=== PATIENT | male | born 1955 | race Caucasian/White ===

== ENCOUNTER → 2016-09-14 | Outpatient (CLI) | payer OTHER ==
[~2016-09-14] MED LIST: CEFD300C PO; CLIN1CAP6 PO; COUM5TAB PO; HYDR-3516 PO; ZITH250T PO
[2016-09-14 14:16] LABS: APTT (PATIENT) 32.1 SEC (24.3-30.1); INTERNATIONAL NORMALIZED RATIO 1.6 RATIO; PROTHROMBIN TIME - PATIENT 17.5 SEC (9.8-11.6)
== END ==
LOC: CLAB 13:45
PROVIDERS: ATTEND Physician Assistant Medical
DX: I82.401 Acute embolism and thrombosis of unspecified deep veins of right lower extremity (principal)
CPT/HCPCS: 36415; 85610; 85730

== ENCOUNTER → 2016-09-22 | Outpatient (CLI) | payer OTHER ==
[~2016-09-22] MED LIST changes: -CLIN1CAP6 PO; -HYDR-3516 PO
[2016-09-22 13:38] LABS: APTT (PATIENT) 38.3 SEC (24.3-30.1); INTERNATIONAL NORMALIZED RATIO 2.1 RATIO; PROTHROMBIN TIME - PATIENT 24.1 SEC (9.8-11.6)
== END ==
LOC: CLAB 12:53
PROVIDERS: ATTEND Physician Assistant Medical
DX: I82.401 Acute embolism and thrombosis of unspecified deep veins of right lower extremity (principal)
CPT/HCPCS: 36415; 85610; 85730

== ENCOUNTER 2016-09-27 20:34 | Emergency (ER) | payer OTHER ==
[~2016-09-27] VITALS: Ht 177.8 cm; Wt 68.0 kg
[~2016-09-27 20:34] MED LIST changes: -CEFD300C PO; -ZITH250T PO
[2016-09-27 20:36] VITALS: BP 127/68; PULSE 97; RESP 16; TEMP 97.6; O2SAT 96
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
[2016-09-27 22:15] LABS: AUTOMATED NEUTROPHIL # 2.4 TH/MM3 (1.8-7.7); BASOPHIL % 0.5 % (0.0-2.0); EOSINOPHIL # 0.1 TH/MM3 (0-0.4); EOSINOPHIL % 1.8 % (0.0-4.0); HEMO FLAGS DIFF FINAL; LYMPH % 44.7 % (9.0-44.0); LYMPHOCYTE # 2.3 TH/MM3 (1.0-4.8); MEAN CELL VOLUME 95.5 FL (80.0-100.0); MEAN CORPUSCULAR HEMOGLOBIN 33.3 PG (27.0-34.0); MEAN CORPUSCULAR HGB CONC 34.9 % (32.0-36.0); MONO % 7.8 % (0.0-8.0); NEUT % 45.2 % (16.0-70.0); PLATELET COUNT 216 TH/MM3 (150-450); RED BLOOD COUNT 4.08 MIL/MM3 (4.50-5.90); RED CELL DISTRIBUTION WIDTH 13.1 % (11.6-17.2); WHITE BLOOD COUNT 5.2 TH/MM3 (4.0-11.0)
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
[2016-09-27 22:39] LABS: APTT (PATIENT) 41.6 SEC (24.3-30.1); INTERNATIONAL NORMALIZED RATIO 3.4 RATIO; PROTHROMBIN TIME - PATIENT 39.9 SEC (9.8-11.6)
[2016-09-27] MEDS ORDERED: COUM5TAB PO (22:53)
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
[2016-09-27] MEDS ORDERED: WARFARIN SOD 5 MG TAB PO ONE (23:00)
[2016-09-27] MEDS ORDERED: ACETAMINOPHEN 325 MG TAB PO ONE (23:00)
[2016-09-27] MEDS ORDERED: WARFARIN SOD 2.5 MG TAB PO ONE (23:00)
[2016-09-27 23:01] LABS: BICARBONATE 25.4 MEQ/L (21.0-32.0)
[2016-10-27] MEDS ORDERED: COUM5TAB PO (09:14)
[2017-03-03] MEDS ORDERED: COUM5TAB PO (15:40)
== END 2016-09-27 23:18 | disposition home or self-care (01) ==
LOC: NEPB 20:34
DX: S00.93XA Contusion of unspecified part of head, initial encounter (principal); Z86.718 Personal history of other venous thrombosis and embolism; F17.210 Nicotine dependence, cigarettes, uncomplicated; Z79.01 Long term (current) use of anticoagulants; Y04.0XXA Assault by unarmed brawl or fight, initial encounter; Y93.89 Activity, other specified; Y92.512 Supermarket, store or market as the place of occurrence of the external cause
CPT/HCPCS: 70450; 72125; 80048; 80320; 85025; 85610; 85730

== ENCOUNTER → 2016-10-25 | Outpatient (CLI) | payer OTHER ==
[~2016-10-25] MED LIST changes: +CEFD300C PO; +ZITH250T PO
[2016-10-25 11:22] LABS: APTT (PATIENT) 37.3 SEC (24.3-30.1); PROTHROMBIN TIME - PATIENT 23.2 SEC (9.8-11.6)
== END ==
LOC: CLAB 10:45
PROVIDERS: ATTEND Family Medicine
DX: I82.401 Acute embolism and thrombosis of unspecified deep veins of right lower extremity (principal); Z79.01 Long term (current) use of anticoagulants; Z51.81 Encounter for therapeutic drug level monitoring
CPT/HCPCS: 36415; 85610; 85730

== ENCOUNTER 2016-12-08 18:05 | Emergency (ER) | payer OTHER ==
[~2016-12-08] VITALS: Ht 172.7 cm; Wt 67.0 kg
[~2016-12-08 18:05] MED LIST changes: -CEFD300C PO; -ZITH250T PO
[2016-12-08 18:06] VITALS: BP 141/78; PULSE 106; RESP 20; TEMP 98.6; O2SAT 97
--- NOTE | 2016-12-08 19:46 | PD ---
HPI Chief Complaint: Alcohol/Drug Intoxication Time Seen by Provider: 19:43 Travel History International Travel<30 days: No Contact w/Intl Traveler<30days: No Traveled to known affect area: No History of Present Illness HPI 61-year-old white male presents to emergency department requesting alcohol detox. He states that he is currently homeless. He has been binge drinking now for several weeks. He has a history of DVT and PE has been off his medicines for 2 days. The patient is requesting detox. He denies any suicidal or homicidal ideation. He denies any chest pain or shortness of breath. No palpitations. No nausea vomiting. No abdominal pain. No leg pain or calf swelling. PFSH Past Medical History Narrative Medical DVT with PE, COPD, alcohol abuse Hx Anticoagulant Therapy: Yes (COUMADIN) Autoimmune Disease: No Cancer: No Cardiovascular Problems: No Chemotherapy: No Diminished Hearing: No Deep Vein Thrombosis: Yes (LL2012) Endocrine: No Genitourinary: No Immune Disorder: No Musculoskeletal: No Neurologic: No Psychiatric: No Reproductive: No Respiratory: No Pneumonia: Yes (SECONDARY TO PE) Radiation Therapy: No Tetanus Vaccination: < 5 Years Past Surgical History Abdominal Surgery: No AICD: No Arteriovenous Shunt: No Cardiac Surgery: No Ear Surgery: No Endocrine Surgery: No Eye Surgery: No Genitourinary Surgery: No Gynecologic Surgery: No Insulin Pump: No Joint Replacement: No Oral Surgery: No Pacemaker: No Thoracic Surgery: No Tonsillectomy: Yes Other Surgery: Yes (RIGHT SIDE FACIAL RECONSTRUCTION) Social History Alcohol Use: Yes (4 4packs a day) Tobacco Use: Yes Substance Use: Yes (alcohol) Allergies-Medications (Allergen,Severity, Reaction): Coded Allergies: Penicillin (Verified Allergy, Severe, ARM SWELLING AT INJECTION SITE, 12/08) Reported Meds & Prescriptions Reported Meds & Active Scripts Active Coumadin (Warfarin) 5 Mg Tab 10 Mg PO DAILY Review of Systems Except as stated in HPI: all other systems reviewed are Neg Physical Exam Narrative GENERAL: Well-developed, well-nourished in no apparent distress. Nontoxic appearing. HEAD: Normocephalic, atraumatic. EYES: Pupils equal round and reactive. Extraocular motions intact. No scleral icterus. No injection or drainage. ENT: Nose clear. Throat without erythema, tonsillar hypertrophy or exudate. Uvula midline. Airway patent. NECK: Trachea midline. Supple, nontender, moves head freely. No central bony tenderness or spasm. CARDIOVASCULAR: Regular rate and rhythm without murmurs, gallops, or rubs. RESPIRATORY: Clear to auscultation. Breath sounds equal bilaterally. No wheezes , rales, or rhonchi. GASTROINTESTINAL: Abdomen soft, non-tender, nondistended. No hepato-splenomegaly , or palpable masses. No guarding. EXTREMITIES: No clubbing, cyanosis, or edema. No joint tenderness. BACK: Nontender without deformity. No flank tenderness. NEUROLOGICAL: Awake, alert and oriented x 3 .Cranial nerves grossly intact. Motor and sensory grossly within normal limits. Normal speech. Data Data Last Documented VS Vital Signs Date Time Temp Pulse Resp B/P Pulse Ox O2 Delivery O2 Flow Rate FiO2 12/08/16 18:06 98.6 106 20 141/78 97 Room Air Orders Warfarin (Coumadin) (12/08/16 20:00) [facility] Medical Decision Making Medical Screen Exam Complete: Yes Emergency Medical Condition: Yes Medical Record Reviewed: Yes Differential Diagnosis Differential diagnoses: Alcohol intoxication, substance abuse, electrolyte abnormality, malingering Narrative Course Patient's given Coumadin 10 mg by mouth. [facility] cannot take a patient who is been noncompliant with his Coumadin. Currently the patient has no way of getting to [facility]. The patient is given outpatient treatment information. The patient is medically stable. This is alcohol abuse Diagnosis Primary Impression: Alcohol abuse Patient Instructions: General Instructions Additional Instructions: Rest. Increase fluids. Avoid alcohol. Avoid illegal substances. Follow-up with Angela Ornel[facility] or a detox facility of your choice for detox. Continue to take your Coumadin daily. Do not operate a car or any heavy machinery under the influence of alcohol or drugs. Follow-up with a medical doctor this week. Return to the ER for emergencies Med/Other Pt SpecificInfo: No Meds Exist/No RX given Disposition: 01 DISCHARGE HOME Condition: Stable Aditya Schmitt Dec 08, 2016 19:46
[2016-12-08] MEDS ORDERED: WARFARIN SOD 10 MG TAB PO ONE (20:00)
[2017-03-03] MEDS ORDERED: COUM5TAB PO (15:40)
== END 2016-12-08 20:19 | disposition home or self-care (01) ==
LOC: NEPB 18:05
DX: F10.10 Alcohol abuse, uncomplicated (principal)
CPT/HCPCS: 99282

== ENCOUNTER → 2016-12-16 | Outpatient (CLI) | payer OTHER ==
[~2016-12-16] MED LIST changes: +CEFD300C PO; +CHLO10CA5 PO; +METO25TA3 PO; +ZITH250T PO
[2016-12-16 10:02] LABS: APTT (PATIENT) 34.3 SEC (24.3-30.1); INTERNATIONAL NORMALIZED RATIO 1.7 RATIO; PROTHROMBIN TIME - PATIENT 19.1 SEC (9.8-11.6)
== END ==
LOC: CLAB 09:30
PROVIDERS: ATTEND Physician Assistant Medical
DX: I82.401 Acute embolism and thrombosis of unspecified deep veins of right lower extremity (principal)
CPT/HCPCS: 36415; 85610; 85730

== ENCOUNTER 2017-02-18 14:01 | Emergency (ER) | payer OTHER ==
[~2017-02-18] VITALS: Ht 177.8 cm; Wt 68.0 kg
[~2017-02-18 14:01] MED LIST changes: -CEFD300C PO; -CHLO10CA5 PO; -METO25TA3 PO; -ZITH250T PO
[2017-02-18 14:03] VITALS: BP 122/70; PULSE 102; RESP 20; TEMP 99.9; O2SAT 97
--- NOTE | 2017-02-18 14:33 | PD ---
Physical Exam Date Seen by Provider: Feb 18, 2017 Time Seen by Provider: 14:31 Data Data Last Documented VS Vital Signs Date Time Temp Pulse Resp B/P Pulse Ox O2 Delivery O2 Flow Rate FiO2 02/18/17 14:03 99.9 102 20 122/70 97 Room Air [facility] Supervised Visit with SHANNON: No Narrative Course 62 YO M with complaint of 2-3 day history of right sided chest and back pain, worsened by breathing. Endorses productive cough x 3-4 days.. History of DVT. On Coumadin. Current smoker. Vitals reviewed. Awaiting bed placement. Fern Parr Feb 18, 2017 14:33
[2017-02-18] MEDS ORDERED: SODIUM CHLORIDE 0.9% FLUSH 10 ML FLUSH IVF PRN (15:15)
--- NOTE | 2017-02-18 15:19 | PD ---
HPI Chief Complaint: Respiratory Symptoms Time Seen by Provider: 15:15 Travel History International Travel<30 days: No Contact w/Intl Traveler<30days: No Traveled to known affect area: No History of Present Illness HPI Patient comes in complaining of right-sided chest pain and cough ongoing for 4 days. Patient states he began coughing bringing up more yellow and brown phlegm than normal. Patient states he does smoke and has a history of PE and DVT. Patient reports he is taking his Coumadin as prescribed and has been therapeutic on it reports his last INR checked proximally one month ago. Patient is concerned as these are symptoms when he was having previously when initially diagnosed with a PE. Patient denies any fevers, nausea, vomiting, abdominal pain, loss change in bowel or bladder, or numbness or tingling anywhere, or other concerns. Pain is worse with deep inspiration and coughing. Pain radiates to his back. Symptoms improve when he takes Tylenol. PFSH Past Medical History Hx Anticoagulant Therapy: Yes (COUMADIN) Autoimmune Disease: No Cancer: No Cardiovascular Problems: No Chemotherapy: No Diminished Hearing: No Deep Vein Thrombosis: Yes (LLE 2012) Endocrine: No Genitourinary: No Immune Disorder: No Musculoskeletal: No Neurologic: No Psychiatric: No Reproductive: No Respiratory: Yes (PE) Pneumonia: Yes (SECONDARY TO PE) Radiation Therapy: No Past Surgical History Abdominal Surgery: No AICD: No Arteriovenous Shunt: No Cardiac Surgery: No Ear Surgery: No Endocrine Surgery: No Eye Surgery: No Genitourinary Surgery: No Gynecologic Surgery: No Insulin Pump: No Joint Replacement: No Oral Surgery: No Pacemaker: No Thoracic Surgery: No Tonsillectomy: Yes Other Surgery: Yes (RIGHT SIDE FACIAL RECONSTRUCTION) Social History Alcohol Use: Yes (4 4packs a day) Tobacco Use: Yes Substance Use: Yes (alcohol) Allergies-Medications (Allergen,Severity, Reaction): Coded Allergies: Penicillin (Verified Allergy, Severe, ARM SWELLING AT INJECTION SITE, 12/08) Reported Meds & Prescriptions Reported Meds & Active Scripts Active Zithromax (Azithromycin) 250 Mg Tab 250 Mg PO DAILY 4 Days Cefdinir 300 Mg Cap 300 Mg PO BID 7 Days Coumadin (Warfarin) 5 Mg Tab 10 Mg PO DAILY Review of Systems Except as stated in HPI: all other systems reviewed are Neg Physical Exam Narrative GENERAL: Well-developed, well nourished, in no acute distress, and non-ill appearing. SKIN: Focused skin assessment warm and dry. HEAD: Atraumatic. Normocephalic. EYES: Pupils equal and round. EOMI. No scleral icterus. No injection or drainage. ENT: No nasal bleeding or discharge. Mucous membranes pink and moist. NECK: Trachea midline. Supple. No nuclear rigidity. CARDIOVASCULAR: Regular rate and rhythm. No murmur appreciated. RESPIRATORY: No accessory muscle use. No respiratory distress. Decreased breath sounds throughout. Breath sounds equal bilaterally. MUSCULOSKELETAL: No obvious deformities. No clubbing. No cyanosis. No edema. Full range of motion. NEUROLOGICAL: Awake and alert. No obvious cranial nerve deficits. Motor grossly within normal limits. Normal speech. PSYCHIATRIC: Appropriate mood and affect; insight and judgment normal. Data Data Last Documented VS Vital Signs Date Time Temp Pulse Resp B/P Pulse Ox O2 Delivery O2 Flow Rate FiO2 02/18/17 16:30 89 18 125/78 98 02/18/17 14:03 99.9 Room Air Orders Complete Blood Count With Diff (02/18/17 15:10) Basic Metabolic Panel (Bmp) (02/18/17 15:10) Act Partial Throm Time (Ptt) (02/18/17 15:10) Prothrombin Time / Inr (Pt) (02/18/17 15:10) Iv Access Insert/Monitor (02/18/17 15:10) Ecg Monitoring (02/18/17 15:10) Oximetry (02/18/17 15:10) Oxygen Administration (02/18/17 15:10) Ct Pulmonary Angiogram (02/18/17 15:10) Sodium Chloride 0.9% Flush (Ns Flush) (02/18/17 15:15) Iohexol 350 Inj (Omnipaque 350 Inj) (02/18/17 17:54) Ceftriaxone Inj (Rocephin Inj) (02/18/17 18:30) Azithromycin (Zithromax) (02/18/17 18:30) Labs Laboratory Tests Test 02/18/17 15:15 White Blood Count 7.3 TH/MM3 Red Blood Count 3.69 MIL/MM3 Hemoglobin 12.3 GM/DL Hematocrit 36.1 % Mean Corpuscular Volume 97.7 FL Mean Corpuscular Hemoglobin 33.3 PG Mean Corpuscular Hemoglobin 34.1 % Concent Red Cell Distribution Width 14.1 % Platelet Count 137 TH/MM3 Mean Platelet Volume 8.3 FL Neutrophils (%) (Auto) 68.1 % Lymphocytes (%) (Auto) 16.5 % Monocytes (%) (Auto) 14.9 % Eosinophils (%) (Auto) 0.3 % Basophils (%) (Auto) 0.2 % Neutrophils # (Auto) 4.9 TH/MM3 Lymphocytes # (Auto) 1.2 TH/MM3 Monocytes # (Auto) 1.1 TH/MM3 Eosinophils # (Auto) 0.0 TH/MM3 Basophils # (Auto) 0.0 TH/MM3 CBC Comment DIFF FINAL Differential Comment Prothrombin Time 64.8 SEC Prothromb Time International 5.4 RATIO Ratio Activated Partial 80.8 SEC Thromboplast Time Sodium Level 138 MEQ/L Potassium Level 3.8 MEQ/L Chloride Level 103 MEQ/L Carbon Dioxide Level 30.6 MEQ/L Anion Gap 4 MEQ/L Blood Urea Nitrogen 17 MG/DL Creatinine 0.87 MG/DL Estimat Glomerular Filtration 90 ML/MIN Rate Random Glucose 103 MG/DL Calcium Level 8.7 MG/DL [facility] Medical Decision Making Medical Screen Exam Complete: Yes Emergency Medical Condition: Yes Interpretation(s) CTA chest her by the radiologist shows: 1. Negative for pulmonary embolus. 2. Dense masslike consolidation right lower lobe medially which is a new finding since August 2016. Primary differential diagnosis is pneumonia. Close followup recommended after treatment to exclude neoplasm. Mild mediastinal adenopathy. Differential Diagnosis PE, pneumonia, pleurisy, bronchitis, pleural effusion, costochondritis, other Narrative Course 1800 patient back from CAT scan resting in bed comfortably in no acute distress. Discussed all laboratory findings with patient. Awaiting CT scan results. Patients symptom complex is consistent with Pneumonia. The patient is non-ill appearing and is in no respiratory distress and comfortable. The patient moves air well and oxygen saturations are normal. Chest CT revealed evidence of pneumonia. The patient looks great and has no significant co morbidities and may be discharged home on outpatient therapy. Plan of care and management were discussed with the patient who agreed with plan. The patient was instructed to follow up with their physician and instructed to return if worsens, progressively worsening shortness of breath or difficulty breathing, persistent fever, chest pains or discomfort, inability to keep medication or fluids down with or without vomiting, or as needed or unable to establish follow up within a timely manner. Patient in no obvious distress upon re-evaluation. All pertinent laboratory/ Radiology result(s) discussed with patient the patient was informed of close follow-up for repeat CT to rule out possible mass. Discussed patient with Dr. Peraza, who saw and evaluated the patient and is in agreement with plan of care and disposition. Any questions/concerns in reference to patient diagnosis/ condition discussed and clarified prior to patient's discharge. Reinforced sheer importance of close follow up with patient's primary physician or primary care clinic. Instructed patient to return to ED immediately, if symptoms return/ worsen. Pt showed understanding of above instructions. Further instructions and recommendations were detailed in discharge paperwork. Pt ambulated without difficulty out of ED at discharge. Diagnosis Primary Impression: Pneumonia Qualified Code: J18.1 - Pneumonia of right lower lobe due to infectious organism Additional Impression: Supratherapeutic INR Referrals: Nu Hodge MD [facility] Patient Instructions: Community Acquired Pneumonia (DC), Elevated INR (ED), General Instructions Additional Instructions: Follow-up with your primary care physician on Tuesday for reevaluation and recheck of your INR. Take all medication as prescribed. Hold your Coumadin for 3 days or until instructed by your primary care doctor to restart it. Return to the emergency department if symptoms get worse. Med/Other Pt SpecificInfo: Prescription(s) given Scripts Azithromycin (Zithromax)250 Mg [id number] Mg PO DAILY 4 Days Ref 0 Prov:Nikole Peraza MD 02/18/17 Cefdinir 300 Mg [id number] Mg PO BID 7 Days Ref 0 Prov:Nikole Peraza MD 02/18/17 Disposition: 01 DISCHARGE HOME Condition: Stable Bruno Sparks Feb 18, 2017 15:18
[2017-02-18 15:45] VITALS: O2SAT 97
[2017-02-18 15:59] LABS: AUTOMATED NEUTROPHIL # 4.9 TH/MM3 (1.8-7.7); BASOPHIL % 0.2 % (0.0-2.0); EOSINOPHIL % 0.3 % (0.0-4.0); HEMATOCRIT 36.1 % (39.0-51.0); HEMO FLAGS DIFF FINAL; LYMPH % 16.5 % (9.0-44.0); LYMPHOCYTE # 1.2 TH/MM3 (1.0-4.8); MEAN CELL VOLUME 97.7 FL (80.0-100.0); MEAN CORPUSCULAR HEMOGLOBIN 33.3 PG (27.0-34.0); MEAN CORPUSCULAR HGB CONC 34.1 % (32.0-36.0); MONO % 14.9 % (0.0-8.0); NEUT % 68.1 % (16.0-70.0); PLATELET COUNT 137 TH/MM3 (150-450); RED BLOOD COUNT 3.69 MIL/MM3 (4.50-5.90); RED CELL DISTRIBUTION WIDTH 14.1 % (11.6-17.2); WHITE BLOOD COUNT 7.3 TH/MM3 (4.0-11.0)
[2017-02-18 16:14] LABS: APTT (PATIENT) 80.8 SEC (24.3-30.1); INTERNATIONAL NORMALIZED RATIO 5.4 RATIO; PROTHROMBIN TIME - PATIENT 64.8 SEC (9.8-11.6)
[2017-02-18 16:21] LABS: BICARBONATE 30.6 MEQ/L (21.0-32.0); POTASSIUM 3.8 MEQ/L (3.5-5.1)
[2017-02-18 16:30] VITALS: BP 125/78; PULSE 89; RESP 18; O2SAT 98
[2017-02-18] MEDS ORDERED: IOHEXOL 350 MG/ML 10 ML VIAL (for RAD DIAG) IV ONE (17:54)
--- NOTE | 2017-02-18 18:11 | RADRPT ---
EXAM DATE/TIME: 02/18/2017 17:46 [facility] COMPARISON: No previous studies available for comparison. INDICATIONS : Patient complains of SOB and cough. IV CONTRAST: 75 cc Omnipaque 350 (iohexol) IV RADIATION DOSE: 4.66 CTDIvol (mGy) MEDICAL HISTORY : DVT ,pulmonary embolus SURGICAL HISTORY : None. ENCOUNTER: Initial ACUITY: 1 day PAIN SCALE: 7/10 LOCATION: Bilateral chest TECHNIQUE: Volumetric scanning of the chest was performed using a pulmonary embolism protocol MIP images were re constructed. Using automated exposure control and adjustment of the mA and/or kV according to patien t size, radiation dose was kept as low as reasonably achievable to obtain optimal diagnostic quality images. FINDINGS: No filling defects are seen to suggest pulmonary embolus. There is a focal area of dense consolidatio n in the medial aspect of the right lower lobe measuring up to 5.9 cm AP diameter and 7.2 cm cephaloc audad extent. This is a new finding since August 2016 and is probably infectious in nature although neoplasm cannot be excluded. There is patchy airspace disease within the costophrenic angle and trac e right pleural fluid. No left effusion or left lung consolidation. There are mildly enlarged right i nferior hilar lymph nodes and mildly enlarged subcarinal lymph node measuring up to 1.3 cm in short a xis diameter. CONCLUSION: 1. Negative for pulmonary embolus. 2. Dense masslike consolidation right lower lobe medially which is a new finding since August 2016. Primary differential diagnosis is pneumonia. Close followup recommended after treatment to exclude n eoplasm. Mild mediastinal adenopathy. Aditya Souza MD on February 18, 2017 at 18:04 Board Certified Radiologist. This report was verified electronically.
[2017-02-18] MEDS ORDERED: ZITH250T PO (18:21)
[2017-02-18] MEDS ORDERED: CEFD300C PO (18:21)
[2017-02-18] MEDS ORDERED: AZITHROMYCIN 250 MG TAB PO ONE (18:30)
[2017-02-18] MEDS ORDERED: cefTRIAXone INJ 1,000 MG in SODIUM CHLORIDE 0.9% INJ 100 ML IV ONE (18:30)
--- NOTE | 2017-02-18 18:40 | PD ---
Data Data Last Documented VS Vital Signs Date Time Temp Pulse Resp B/P Pulse Ox O2 Delivery O2 Flow Rate FiO2 02/18/17 16:30 89 18 125/78 98 02/18/17 14:03 99.9 Room Air Orders Complete Blood Count With Diff (02/18/17 15:10) Basic Metabolic Panel (Bmp) (02/18/17 15:10) Act Partial Throm Time (Ptt) (02/18/17 15:10) Prothrombin Time / Inr (Pt) (02/18/17 15:10) Iv Access Insert/Monitor (02/18/17 15:10) Ecg Monitoring (02/18/17 15:10) Oximetry (02/18/17 15:10) Oxygen Administration (02/18/17 15:10) Ct Pulmonary Angiogram (02/18/17 15:10) Sodium Chloride 0.9% Flush (Ns Flush) (02/18/17 15:15) Iohexol 350 Inj (Omnipaque 350 Inj) (02/18/17 17:54) Ceftriaxone Inj (Rocephin Inj) (02/18/17 18:30) Azithromycin (Zithromax) (02/18/17 18:30) Labs Laboratory Tests Test 02/18/17 15:15 White Blood Count 7.3 TH/MM3 Red Blood Count 3.69 MIL/MM3 Hemoglobin 12.3 GM/DL Hematocrit 36.1 % Mean Corpuscular Volume 97.7 FL Mean Corpuscular Hemoglobin 33.3 PG Mean Corpuscular Hemoglobin 34.1 % Concent Red Cell Distribution Width 14.1 % Platelet Count 137 TH/MM3 Mean Platelet Volume 8.3 FL Neutrophils (%) (Auto) 68.1 % Lymphocytes (%) (Auto) 16.5 % Monocytes (%) (Auto) 14.9 % Eosinophils (%) (Auto) 0.3 % Basophils (%) (Auto) 0.2 % Neutrophils # (Auto) 4.9 TH/MM3 Lymphocytes # (Auto) 1.2 TH/MM3 Monocytes # (Auto) 1.1 TH/MM3 Eosinophils # (Auto) 0.0 TH/MM3 Basophils # (Auto) 0.0 TH/MM3 CBC Comment DIFF FINAL Differential Comment Prothrombin Time 64.8 SEC Prothromb Time International 5.4 RATIO Ratio Activated Partial 80.8 SEC Thromboplast Time Sodium Level 138 MEQ/L Potassium Level 3.8 MEQ/L Chloride Level 103 MEQ/L Carbon Dioxide Level 30.6 MEQ/L Anion Gap 4 MEQ/L Blood Urea Nitrogen 17 MG/DL Creatinine 0.87 MG/DL Estimat Glomerular Filtration 90 ML/MIN Rate Random Glucose 103 MG/DL Calcium Level 8.7 MG/DL [facility] Supervised Visit with SHANNON: Yes Narrative Course The history, exam, and medical decision-making in the associated midlevel provider note were completed with my assistance. I reviewed and agree with the findings presented. I attest that I had a [id number] encounter with the patient on the same day, and personally performed and documented my assessment and findings in the medical record. *My assessment and Findings: This is a 62-year-old male who presents to the emergency department with right sided pleuritic chest pain. He has a history of pulmonary embolism. He is Coumadin and reports clients. Labs are obtained which are reassuring. Patient has an INR of 5. CT pulmonary angiogram was obtained which demonstrates a mass in the right lower lung which appears to be a possible pneumonia. He does have a temperature of 99.9 and a productive cough so I suspect this is the etiology of his symptoms. Patient was advised that he needs repeat imaging and one month. He was discharged on Omnicef and azithromycin Diagnosis Primary Impression: Pneumonia Qualified Code: J18.1 - Pneumonia of right lower lobe due to infectious organism Additional Impression: Supratherapeutic INR Referrals: [facility] Patient Instructions: General Instructions, Community Acquired Pneumonia (DC), Elevated INR (ED) Additional Instruction: Follow-up with your primary care physician on Tuesday for reevaluation and recheck of your INR. Take all medication as prescribed. Hold your Coumadin for 3 days or until instructed by your primary care doctor to restart it. Return to the emergency department if symptoms get worse. You need to have a repeat x-ray or CT scan performed in 1 month to make sure that your right lower lung mass resolves. Scripts Azithromycin (Zithromax)250 Mg [id number] Mg PO DAILY 4 Days Ref 0 Prov:Nikole Peraza MD 02/18/17 Cefdinir 300 Mg [id number] Mg PO BID 7 Days Ref 0 Prov:Nikole Peraza MD 02/18/17 Disposition: DISCHARGE HOME Condition: Stable Nikole Peraza MD Feb 18, 2017 18:40
[2017-03-03] MEDS ORDERED: COUM5TAB PO (15:40)
== END 2017-02-18 19:53 | disposition home or self-care (01) ==
LOC: NEPC 14:01
DX: J18.9 Pneumonia, unspecified organism (principal); R79.1 Abnormal coagulation profile; Z86.718 Personal history of other venous thrombosis and embolism; Z79.01 Long term (current) use of anticoagulants; F17.210 Nicotine dependence, cigarettes, uncomplicated
CPT/HCPCS: 71275; 80048; 85025; 85610; 85730; 96374; 99285; J0696; Q9967

== ENCOUNTER → 2017-02-21 | Outpatient (CLI) | payer OTHER ==
[~2017-02-21] MED LIST changes: +CEFD300C PO; +CHLO10CA5 PO; +METO25TA3 PO; +ZITH250T PO
[2017-02-21 13:42] LABS: APTT (PATIENT) 31.3 SEC (24.3-30.1); INTERNATIONAL NORMALIZED RATIO 1.1 RATIO
== END ==
LOC: CLAB 13:15
PROVIDERS: ATTEND Family Medicine
DX: I82.401 Acute embolism and thrombosis of unspecified deep veins of right lower extremity (principal)
CPT/HCPCS: 36415; 85610; 85730

== ENCOUNTER → 2017-03-01 | Outpatient (CLI) | payer OTHER ==
[~2017-03-01] MED LIST changes: -CHLO10CA5 PO; -METO25TA3 PO
[2017-03-01 14:55] LABS: APTT (PATIENT) 40.5 SEC (24.3-30.1); INTERNATIONAL NORMALIZED RATIO 3.4 RATIO; PROTHROMBIN TIME - PATIENT 39.7 SEC (9.8-11.6)
== END ==
LOC: CLAB 14:19
PROVIDERS: ATTEND Physician Assistant Medical
DX: I82.401 Acute embolism and thrombosis of unspecified deep veins of right lower extremity (principal)
CPT/HCPCS: 36415; 85610; 85730

== ENCOUNTER → 2017-03-03 | Outpatient (CLI) | payer OTHER ==
[2017-03-03 10:00] LABS: APTT (PATIENT) 46.6 SEC (24.3-30.1); INTERNATIONAL NORMALIZED RATIO 3.7 RATIO; PROTHROMBIN TIME - PATIENT 43.5 SEC (9.8-11.6)
== END ==
LOC: CLAB 09:29
PROVIDERS: ATTEND Physician Assistant Medical
DX: I82.401 Acute embolism and thrombosis of unspecified deep veins of right lower extremity (principal)
CPT/HCPCS: 36415; 85610; 85730

== ENCOUNTER 2017-03-12 15:31 | Observation (INO) | payer OTHER ==
[~2017-03-12] VITALS: Ht 177.8 cm; Wt 72.0 kg
[2017-03-12 15:39] VITALS: BP 110/66; PULSE 86; RESP 24; TEMP 97.7; O2SAT 99
[2017-03-12 15:42] VITALS: BP 110/66; PULSE 86; RESP 24; O2SAT 100
--- NOTE | 2017-03-12 15:50 | PD ---
HPI Chief Complaint: Chest Pain Time Seen by Provider: 15:50 Travel History International Travel<30 days: No Contact w/Intl Traveler<30days: No Traveled to known affect area: No History of Present Illness HPI 62-year-old male with history of alcohol dependency, history of DVT on Coumadin , presents to the emergency department today for evaluation of a chest pressure. Patient states that he has been drinking alcohol all day, like he typically does. He began having a pressure on his chest. He states he's never had anything like this and it caused him to be scared. He denied any shortness of breath, diaphoresis, or sensation of lightheadedness associated with it. He asked people passing by contact [facility] and one finally did. He states the chest pressure persisted for "quite some time" until [facility].there and administered sublingual nitroglycerin. He states this did resolve the pressure. At this time patient has no symptoms. Patient has not been recently ill. He continues to smoke a pack of tobacco cigarettes daily. On previous visit she was diagnosed with pleurisy and he states this was not like that pain. Patient has not had a stress test as far as he can remember. He has no other symptoms reported this time.. PFSH Past Medical History Hx Anticoagulant Therapy: Yes (COUMADIN) Autoimmune Disease: No Cancer: No Cardiovascular Problems: Yes (PULMONARY EMBOLISM) Chemotherapy: No Diminished Hearing: No Deep Vein Thrombosis: Yes (LL2012) Endocrine: No Genitourinary: No Immune Disorder: No Musculoskeletal: No Neurologic: No Psychiatric: No Reproductive: No Respiratory: Yes (PE) Pneumonia: Yes (SECONDARY TO PE) Radiation Therapy: No Influenza Vaccination: No Past Surgical History Abdominal Surgery: No AICD: No Arteriovenous Shunt: No Cardiac Surgery: No Ear Surgery: No Endocrine Surgery: No Eye Surgery: No Genitourinary Surgery: No Gynecologic Surgery: No Insulin Pump: No Joint Replacement: No Oral Surgery: No Pacemaker: No Thoracic Surgery: No Tonsillectomy: Yes Other Surgery: Yes (RIGHT SIDE FACIAL RECONSTRUCTION) Social History Alcohol Use: Yes (DAILY) Tobacco Use: Yes (1 PPD) Substance Use: No Allergies-Medications (Allergen,Severity, Reaction): Coded Allergies: Penicillin (Verified Allergy, Severe, ARM SWELLING AT INJECTION SITE, ) Reported Meds & Prescriptions Reported Meds & Active Scripts Active Coumadin (Warfarin) 5 Mg Tab 10 Mg PO DAILY Review of Systems Except as stated in HPI: all other systems reviewed are Neg Physical Exam Exam Limitations: Intoxication Narrative GENERAL: Well-nourished male patient, sitting in bed, in no acute distress SKIN: Focused skin assessment warm/dry. HEAD: Atraumatic. Normocephalic. EYES: Pupils equal and round. No scleral icterus. No injection or drainage. ENT: No nasal bleeding or discharge. Mucous membranes pink and moist. NECK: Trachea midline. No JVD. CARDIOVASCULAR: Regular rate and rhythm. . RESPIRATORY: No accessory muscle use. Diminished bases, otherwise clear to auscultation. Breath sounds equal bilaterally. GASTROINTESTINAL: Abdomen soft, non-tender, nondistended. Hepatic and splenic margins not palpable. MUSCULOSKELETAL: No obvious deformities. No clubbing. No cyanosis. No edema. NEUROLOGICAL: Awake and alert. No obvious cranial nerve deficits. Motor grossly within normal limits. Normal speech. Data Data Last Documented VS Vital Signs Date Time Temp Pulse Resp B/P Pulse Ox O2 Delivery O2 Flow Rate FiO2 03/12/17 17:42 78 16 112/68 98 Room Air 03/12/17 15:39 97.7 Orders Electrocardiogram (03/12/17 15:48) Basic Metabolic Panel (Bmp) (03/12/17 15:48) Ckmb (Isoenzyme) Profile (03/12/17 15:48) Complete Blood Count With Diff (03/12/17 15:48) Magnesium (Mg) (03/12/17 15:48) Prothrombin Time / Inr (Pt) (03/12/17 15:48) Act Partial Throm Time (Ptt) (03/12/17 15:48) Troponin I (03/12/17 15:48) Chest, Single Ap (03/12/17 15:48) Ecg Monitoring (03/12/17 15:48) Bilateral Bp Monitoring (03/12/17 15:48) Iv Access Insert/Monitor (03/12/17 15:48) Oximetry (03/12/17 15:48) Oxygen Administration (03/12/17 15:48) Aspirin Chew (Aspirin Chew) (03/12/17 16:00) Sodium Chloride 0.9% Flush (Ns Flush) (03/12/17 16:00) Sodium Chlorid 0.9% 500 Ml Inj (Ns 500 M (03/12/17 16:00) Alcohol (Ethanol) (03/12/17 16:18) CKMB (03/12/17 16:00) CKMB% (03/12/17 16:00) Labs Laboratory Tests Test 03/12/17 16:00 White Blood Count 3.8 TH/MM3 Red Blood Count 3.90 MIL/MM3 Hemoglobin 12.8 GM/DL Hematocrit 38.2 % Mean Corpuscular Volume 98.0 FL Mean Corpuscular Hemoglobin 33.0 PG Mean Corpuscular Hemoglobin 33.6 % Concent Red Cell Distribution Width 14.1 % Platelet Count 135 TH/MM3 Mean Platelet Volume 8.1 FL Neutrophils (%) (Auto) 39.5 % Lymphocytes (%) (Auto) 51.5 % Monocytes (%) (Auto) 8.6 % Eosinophils (%) (Auto) 0.1 % Basophils (%) (Auto) 0.3 % Neutrophils # (Auto) 1.5 TH/MM3 Lymphocytes # (Auto) 1.9 TH/MM3 Monocytes # (Auto) 0.3 TH/MM3 Eosinophils # (Auto) 0.0 TH/MM3 Basophils # (Auto) 0.0 TH/MM3 CBC Comment DIFF FINAL Differential Comment Prothrombin Time 15.7 SEC Prothromb Time International 1.4 RATIO Ratio Activated Partial 32.0 SEC Thromboplast Time Sodium Level 140 MEQ/L Potassium Level 3.6 MEQ/L Chloride Level 103 MEQ/L Carbon Dioxide Level 30.7 MEQ/L Anion Gap 6 MEQ/L Blood Urea Nitrogen 4 MG/DL Creatinine 0.68 MG/DL Estimat Glomerular Filtration 119 ML/MIN Rate Random Glucose 105 MG/DL Calcium Level 8.1 MG/DL Magnesium Level 2.1 MG/DL Total Creatine Kinase 171 U/L Creatine Kinase MB 0.9 NG/ML Troponin I LESS THAN 0.02 NG/ML Ethyl Alcohol Level 372 MG/DL [facility] Medical Decision Making Medical Screen Exam Complete: Yes Emergency Medical Condition: Yes Medical Record Reviewed: Yes Differential Diagnosis ACS versus chest wall pain versus pleuritic pain versus pneumonia Narrative Course 62-year-old male presents to emergency department for evaluation of chest pressure alleviated by some labile nitroglycerin. Patient appears without distress. He is currently asymptomatic. EKG is without acute abnormality. CBC is consistent with previous lab work except for a leukopenia of 3.8.. BMP is without acute concern. There is a mild hypocalcemia 8.1. Troponin is less than 0.02. INR is subtherapeutic at 1.4. Patient has remained asymptomatic. He would be appropriate candidate for the chest pain unit however toxicology came back with the EtOH is 372. Due to this, it is in the patient's best interest to be admitted observation for serial troponins, cardiology evaluation , with alcohol withdrawal precautions in place. A call has been placed to [facility] for observation admission. Diagnosis Primary Impression: Chest pain at rest Additional Impressions: Alcohol intoxication Qualified Code: F10.929 - Alcohol intoxication, with unspecified complication Supratherapeutic INR Tobacco abuse Admitting Information Admitting Physician Requests: Observation Condition: Stable Estee Huffman Mar 12, 2017 15:50
[2017-03-12] MEDS ORDERED: ASPIRIN 81 MG CHEW TAB PO ONE (16:00)
[2017-03-12] MEDS ORDERED: SODIUM CHLORID 0.9% 500 ML INJ 500 ML IV ONE (16:00)
[2017-03-12] MEDS ORDERED: SODIUM CHLORIDE 0.9% FLUSH 10 ML FLUSH IVF PRN (16:00)
[2017-03-12 16:10] LABS: AUTOMATED NEUTROPHIL # 1.5 TH/MM3 (1.8-7.7); BASOPHIL % 0.3 % (0.0-2.0); EOSINOPHIL % 0.1 % (0.0-4.0); HEMATOCRIT 38.2 % (39.0-51.0); HEMO FLAGS DIFF FINAL; LYMPH % 51.5 % (9.0-44.0); LYMPHOCYTE # 1.9 TH/MM3 (1.0-4.8); MEAN CORPUSCULAR HGB CONC 33.6 % (32.0-36.0); MONO % 8.6 % (0.0-8.0); NEUT % 39.5 % (16.0-70.0); PLATELET COUNT 135 TH/MM3 (150-450); RED CELL DISTRIBUTION WIDTH 14.1 % (11.6-17.2); WHITE BLOOD COUNT 3.8 TH/MM3 (4.0-11.0)
[2017-03-12 16:18] LABS: INTERNATIONAL NORMALIZED RATIO 1.4 RATIO; PROTHROMBIN TIME - PATIENT 15.7 SEC (9.8-11.6)
[2017-03-12 16:26] LABS: ANION GAP 6 MEQ/L (5-15); BICARBONATE 30.7 MEQ/L (21.0-32.0); BLOOD UREA NITROGEN 4 MG/DL (7-18); CHLORIDE 103 MEQ/L (98-107); GLOMERULAR FILTRATION RATE 119 ML/MIN (>89); MAGNESIUM 2.1 MG/DL (1.5-2.5); POTASSIUM 3.6 MEQ/L (3.5-5.1); SODIUM (NA) 140 MEQ/L (136-145)
[2017-03-12 16:30] LABS: CREATINE KINASE 171 U/L (39-308)
[2017-03-12 16:42] LABS: CKMB 0.9 NG/ML (0.5-3.6)
--- NOTE | 2017-03-12 17:10 | RADRPT ---
EXAM DATE/TIME: 03/12/2017 16:40 [facility] COMPARISON: No previous studies available for comparison. INDICATIONS : Chest pain and pressure that started today. MEDICAL HISTORY : DVT ,pulmonary embolus. SURGICAL HISTORY : None. ENCOUNTER: Initial ACUITY: 1 day PAIN SCORE: 10/10 LOCATION: Bilateral chest FINDINGS: A single view of the chest demonstrates the lungs to be symmetrically aerated without evidence of mas s, infiltrate or effusion. The cardiomediastinal contours are unremarkable. Osseous structures are intact. CONCLUSION: No acute disease. Aditya Souza MD on March 12, 2017 at 17:05 Board Certified Radiologist. This report was verified electronically.
[2017-03-12 17:42] VITALS: BP 112/68; PULSE 78; RESP 16; O2SAT 98
--- NOTE | 2017-03-12 19:22 | HHI.HP ---
[facility] Nu Hodge MD Admission Diagnosis chest pain; intoxication Diagnoses: (1) Chest pain Diagnosis: Principal (2) H/O deep venous thrombosis Diagnosis: Principal (3) Alcohol abuse Diagnosis: Principal (4) Tobacco abuse Diagnosis: Principal Travel History International Travel<30 Days: No Contact w/Intl Traveler <30 Da: No Traveled to Known Affected Are: No History of Present Illness This is a 62-year-old Homeless male with a PMH of HTN, h/o DVT/PE on Coumadin, Alcohol Abuse and Tobacco Abuse who was brought here by EMS secondary to complaints of chest pain. Patient was apparently standing outside the hospital drinking a beer when he had sudden onset of substernal chest pain and asked bystanders to flag down EMS. S/p NTG by EMS w/ improvement, chest pain currently 10/22. Denies fever, chills, SOB or cough. On arrival, BP 110/66, HR 86, O2 sat 99% on RA, Afebrile. Platelets 135, previously 137 on 02/28/17. Chemistry unremarkable. Troponin negative. INR 1.4. Alcohol 372. CXR with no acute findings. Review of Systems Except as stated in HPI: all other systems reviewed are Neg ROS: 14 point review of systems otherwise negative. Past Family Social History Past Medical History PMH: HTN, h/o DVT/PE on Coumadin, Alcohol Abuse and Tobacco Abuse Past Surgical History PAST SURGICAL HISTORY: Right Face Reconstruction, Tonsillectomy Allergies: Coded Allergies: Penicillin (Verified Allergy, Severe, ARM SWELLING AT INJECTION SITE, ) Family History PAST FAMILY HISTORY: Reviewed. No h/o DM or CAD Social History PAST SOCIAL HISTORY: Drinks daily. Smokes 1ppd. Negative for drugs. Physical Exam Vital Signs Vital Signs Date Time Temp Pulse Resp B/P Pulse Ox O2 Delivery O2 Flow Rate FiO2 03/12/17 17:42 78 16 112/68 98 Room Air 03/12/17 15:42 86 24 110/66 100 Room Air 03/12/17 15:39 97.7 86 24 110/66 99 Physical Exam PE: GENERAL: Middle-aged male in no acute distress. HEENT: PERRLA, EOMI. No scleral icterus or conjunctival pallor. No lid lag or facial droop. CARDIOVASCULAR: Regular rate and rhythm. No obvious murmurs to auscultation. No chest tenderness to palpation. RESPIRATORY: No obvious rhonchi or wheezing. Clear to auscultation. Breath sounds equal bilaterally. GASTROINTESTINAL: Abdomen soft, non-tender, nondistended. BS normal. MUSCULOSKELETAL: Extremities without clubbing, cyanosis, or edema. No obvious deformities. NEUROLOGICAL: Awake, alert and oriented x4. No focal neurologic deficits. Moving both upper and lower extremities spontaneously. Laboratory Laboratory Tests Test 03/12/17 16:00 White Blood Count 3.8 Red Blood Count 3.90 Hemoglobin 12.8 Hematocrit 38.2 Mean Corpuscular Volume 98.0 Mean Corpuscular Hemoglobin 33.0 Mean Corpuscular Hemoglobin 33.6 Concent Red Cell Distribution Width 14.1 Platelet Count 135 Mean Platelet Volume 8.1 Neutrophils (%) (Auto) 39.5 Lymphocytes (%) (Auto) 51.5 Monocytes (%) (Auto) 8.6 Eosinophils (%) (Auto) 0.1 Basophils (%) (Auto) 0.3 Neutrophils # (Auto) 1.5 Lymphocytes # (Auto) 1.9 Monocytes # (Auto) 0.3 Eosinophils # (Auto) 0.0 Basophils # (Auto) 0.0 CBC Comment DIFF FINAL Differential Comment Prothrombin Time 15.7 Prothromb Time International 1.4 Ratio Activated Partial 32.0 Thromboplast Time Sodium Level 140 Potassium Level 3.6 Chloride Level 103 Carbon Dioxide Level 30.7 Anion Gap 6 Blood Urea Nitrogen 4 Creatinine 0.68 Estimat Glomerular Filtration 119 Rate Random Glucose 105 Calcium Level 8.1 Magnesium Level 2.1 Total Creatine Kinase 171 Creatine Kinase MB 0.9 Troponin I LESS THAN 0.02 Ethyl Alcohol Level 372 Result Diagram: 03/12/17 1600 03/12/17 1600 Assessment and Plan Problem List: (1) Chest pain ICD Code: R07.9 Status: Acute (2) H/O deep venous thrombosis ICD Code: Z86.718 Status: Acute (3) Alcohol abuse ICD Code: F10.10 Status: Acute (4) Tobacco abuse ICD Code: Z72.0 Status: Acute Assessment and Plan A/P: 1. Chest Pain: c/o acute onset of chest pain, relieved by NTG. Initial trop negative. Will admit to CDU for Observation, check serial cardiac enzymes. ASA , Statin, B-aaron w/ hold parameters. Check lipid profile. NTG/Morphine prn as needed. CXR w/ no acute findings, images reviewed by me. 2. H/o DVT/PE: On Coumadin, subtherapeutic w/ INR 1.4. Reports compliance w/ meds. CTA 02/18/17 w/ no evidence of PE. Restart home Coumadin, check INR in am , Lovenox 70mg sq now. 3. Alcohol Abuse: w/ Acute Alcohol Intoxication. Alcohol 372. Drinks daily, high risk for withdrawal. Start CIWA, Seizure Precautions, MVT/Thiamine/Folate replacement. 4. Tobacco Abuse: Ativan prn if needed. No NicoDerm to avoid vasoconstriction. 5. DVT Prophylaxis: On Coumadin 6. Social work for d/c planning as needed. 7. Case discussed w/ ER physician at length. Aura Reeder MD Mar 12, 2017 19:22
[2017-03-12] MEDS ORDERED: MORPHINE SULFATE 4 MG/ML INJ IV PRN (19:30)
[2017-03-12] MEDS ORDERED: SODIUM CHLORIDE 0.9% FLUSH 10 ML FLUSH IV FLUSH PRN ×2 (19:30)
[2017-03-12] MEDS ORDERED: ACETAMINOPHEN 325 MG TAB PO PRN (19:30)
[2017-03-12] MEDS ORDERED: ACETAMINOPHEN/HYDROcodone 325 MG/5 MG TAB PO PRN (19:30)
[2017-03-12] MEDS ORDERED: LORazepam 1 MG TAB PO PRN (19:30)
[2017-03-12] MEDS ORDERED: BISACODYL 10 MG SUPP RECTAL PRN (19:30)
[2017-03-12] MEDS ORDERED: MAGNESIUM HYDROXIDE SUSP 30 ML CUP PO PRN (19:30)
[2017-03-12] MEDS ORDERED: HALOPERIDOL LACTATE 5 MG/ML AMP IM PRN (19:30)
[2017-03-12] MEDS ORDERED: SENNOSIDES 8.6 MG TAB PO PRN (19:30)
[2017-03-12] MEDS ORDERED: NITROGLYCERIN 2% OINT 1 GM PACKET TOPICAL PRN (19:30)
[2017-03-12] MEDS ORDERED: LORazepam 2 MG/ML VIAL IV PUSH PRN ×4 (19:30)
[2017-03-12] MEDS ORDERED: LORazepam 2 MG TAB PO PRN (19:30)
[2017-03-12] MEDS ORDERED: ONDANSETRON HCL 4 MG/2 ML VIAL IVP PRN (19:30)
[2017-03-12] MEDS ORDERED: FLUMAZENIL 0.5 MG/5 ML VIAL IV PUSH PRN (19:30)
[2017-03-12] MEDS ORDERED: LACTULOSE SYRUP 20 GM/30 ML CUP PO PRN (19:30)
[2017-03-12] MEDS ORDERED: PILL SPLITTER OTHER PRN (19:45)
[2017-03-12 19:54] VITALS: BP 109/58; PULSE 84; RESP 18; O2SAT 98
[2017-03-12] MEDS ORDERED: ENOXAPARIN SODIUM 80 MG/0.8 ML SYRINGE SQ ONE (20:00)
[2017-03-12] MEDS: SODIUM CHLOR 0.9% 1000 ML INJ 1,000 ML IV SCH (20:22)
[2017-03-12] MEDS: SODIUM CHLORIDE 0.9% FLUSH 10 ML FLUSH IV FLUSH SCH ×2 (21:00)
[2017-03-12] MEDS: DOCUSATE SODIUM 50 MG/SENNA 8.6 MG TAB PO SCH (21:00)
[2017-03-12] MEDS: METOPROLOL TARTRATE 25 MG TAB PO SCH (21:00)
[2017-03-12 21:47] VITALS: PULSE 80
[2017-03-12 23:52] VITALS: BP 95/50; PULSE 66; RESP 18; TEMP 98.5; O2SAT 97
[2017-03-13] VITALS (8 sets, daily range): BP systolic 115–154; BP diastolic 63–80; PULSE 67–87; RESP 15–20; TEMP 97.7–98.9; O2SAT 91–100
[2017-03-13] MEDS ORDERED: LORazepam 1 MG TAB PO ONE (05:00)
[2017-03-13] MEDS: SODIUM CHLOR 0.9% 1000 ML INJ 1,000 ML IV SCH (05:14)
[2017-03-13 07:25] LABS: BASOPHIL % 0.3 % (0.0-2.0); EOSINOPHIL % 0.5 % (0.0-4.0); HEMATOCRIT 37.1 % (39.0-51.0); HEMO FLAGS DIFF FINAL; LYMPH % 34.5 % (9.0-44.0); LYMPHOCYTE # 1.2 TH/MM3 (1.0-4.8); MEAN CELL VOLUME 97.4 FL (80.0-100.0); MEAN CORPUSCULAR HGB CONC 33.9 % (32.0-36.0); MONO % 9.5 % (0.0-8.0); NEUT % 55.2 % (16.0-70.0); PLATELET COUNT 121 TH/MM3 (150-450); RED BLOOD COUNT 3.81 MIL/MM3 (4.50-5.90); RED CELL DISTRIBUTION WIDTH 14.1 % (11.6-17.2); WHITE BLOOD COUNT 3.6 TH/MM3 (4.0-11.0)
[2017-03-13 07:38] LABS: INTERNATIONAL NORMALIZED RATIO 1.4 RATIO; PROTHROMBIN TIME - PATIENT 15.9 SEC (9.8-11.6)
[2017-03-13 07:45] LABS: ANION GAP 3 MEQ/L (5-15); AST (GOT) 52 U/L (15-37); BICARBONATE 29.8 MEQ/L (21.0-32.0); BLOOD UREA NITROGEN 6 MG/DL (7-18); CHLORIDE 107 MEQ/L (98-107); GLOMERULAR FILTRATION RATE 135 ML/MIN (>89); POTASSIUM 4.1 MEQ/L (3.5-5.1); SODIUM (NA) 140 MEQ/L (136-145)
[2017-03-13 07:47] LABS: ALT (GPT) 26 U/L (12-78)
[2017-03-13 07:50] LABS: ALKALINE PHOSPHATASE 56 U/L (45-117); HDL CHOLESTEROL 72.2 MG/DL (40.0-60.0); LDL CHOLESTEROL 59 MG/DL (0-99); TOTAL BILIRUBIN ADULT 0.6 MG/DL (0.2-1.0)
--- NOTE | 2017-03-13 08:07 | HHI.PR ---
Subjective Remarks Follow-up for chest pain. The patient complains of tremors today. He states that he has had tremors in the past when he stops drinking. He does have a history of DTs in the past, no seizures. He states that yesterday he had a sudden onset of midsternal chest pressure with associated shortness of breath. He states the chest pain lasted for several minutes until EMS arrived and the pain was relieved by nitroglycerin. No further pain or shortness of breath at this time. He denies any pain with deep breathing. He states his INR was above 3 last week, follows with Dr. Hodge. He states his INR is labile because he is inconsistent with diet. He would be interested in information regarding quitting alcohol. He does smoke. He denies any prior history of known heart disease. Objective Vitals Vital Signs Date Time Temp Pulse Resp B/P Pulse Ox O2 Delivery O2 Flow Rate FiO2 03/13/17 07:53 97.8 81 20 154/80 100 03/13/17 05:10 94 Nasal Cannula 2.00 03/13/17 05:02 94 03/13/17 04:45 97.7 87 17 115/63 91 03/13/17 04:00 75 03/13/17 00:18 82 03/12/17 23:52 98.5 66 18 95/50 97 03/12/17 21:47 80 03/12/17 19:54 84 18 109/58 98 03/12/17 17:42 78 16 112/68 98 Room Air 03/12/17 15:42 86 24 110/66 100 Room Air 03/12/17 15:39 97.7 86 24 110/66 99 I/O 03/12/17 03/12/17 03/12/17 03/13/17 03/13/17 03/13/17 07:00 15:00 23:00 07:00 15:00 23:00 Intake Total 200 ml Output Total 1770 ml Balance -1770 ml 200 ml Intake Oral 200 ml Output Urine Total 1770 ml # Voids 1 3 Result Diagram: 03/13/17 0700 03/13/17 0700 Imaging Last Impressions Chest X-Ray 03/12/17 1548 Signed Impressions: Service Date/Time: Sunday, March 12, 2017 16:40 - CONCLUSION: No acute disease. Aditya Souza MD Objective Remarks GENERAL: Well-developed well-nourished. In no acute distress. SKIN: Warm and dry. No lesions noted. HEENT: Normocephalic. Pupils equal and round. Mucous membranes pink and moist. CARDIOVASCULAR: Regular rate and rhythm. No murmur appreciated. No chest wall TTP. RESPIRATORY: No accessory muscle use. Clear to auscultation. Breath sounds equal bilaterally. GASTROINTESTINAL: Abdomen soft, non-tender, nondistended. Bowel sounds x4. MUSCULOSKELETAL: No obvious deformities. No clubbing or cyanosis. No edema. NEUROLOGICAL: Awake and alert. No focal neurological deficits. Moves upper and lower extremities spontaneously. Normal speech. Moderately tremulous. PSYCHIATRIC: Appropriate mood and affect; insight and judgment normal. A/P Problem List: (1) Chest pain ICD Code: R07.9 Status: Acute (2) H/O deep venous thrombosis ICD Code: Z86.718 Status: Chronic (3) Alcohol abuse ICD Code: F10.10 Status: Chronic (4) Tobacco abuse ICD Code: Z72.0 Status: Chronic Assessment and Plan 62-year-old male with a PMH of HTN, h/o DVT/PE on Coumadin, Alcohol Abuse, and Tobacco Abuse who presented secondary to complaints of chest pain Chest Pain: c/o acute onset of chest pain, relieved by NTG. Serial troponins and EKGs reviewed and unremarkable 3. CXR w/ no acute findings. Started on aspirin and beta aaron. Lipid profile essentially within normal limits. NTG/ Morphine prn as needed. Stress test today. H/o DVT: On Coumadin, subtherapeutic w/ INR 1.4. Reports compliance w/ meds, but not with diet. Continue home Coumadin, monitor INR. Follow-up with PCP for continued INR monitoring. Alcohol Abuse: w/ Acute Alcohol Intoxication. Alcohol 372 at admission. Signs of withdrawal. Currently apprehensive about quitting, but will accept information regarding outpatient resources. Continue CIWA, Seizure Precautions , MVT/Thiamine/Folate replacement. Add Librium. Tobacco Abuse: Ativan prn if needed. No NicoDerm to avoid vasoconstriction. DVT Prophylaxis: On Coumadin Discharge Planning Follow up results of stress test today. 1300 stress test normal. The patient was relieved to find out he did not have a heart attack. Tremors have improved today on Librium. Normotensive. Tolerating lunch currently. The patient is interested in voluntary outpatient detox. He would like to continue on Librium and states that he will abstain from alcohol while on Librium until he can get into detox. Discussed with RN, discharge after the patient receives information on outpatient resources for alcoholism. Moose Thomas Mar 13, 2017 08:07
[2017-03-13] MEDS: DOCUSATE SODIUM 50 MG/SENNA 8.6 MG TAB PO SCH (08:21)
[2017-03-13] MEDS: SODIUM CHLORIDE 0.9% FLUSH 10 ML FLUSH IV FLUSH SCH ×2 (08:22→08:23)
[2017-03-13] MEDS: METOPROLOL TARTRATE 25 MG TAB PO SCH (08:23)
[2017-03-13] MEDS ORDERED: PRAVASTATIN SOD 40 MG TAB PO SCH (09:00)
[2017-03-13] MEDS ORDERED: THIAMINE HCL 100 MG TAB PO SCH (09:00)
[2017-03-13] MEDS ORDERED: WARFARIN SOD 5 MG TAB PO SCH (09:00)
[2017-03-13] MEDS ORDERED: ASPIRIN EC 81 MG TABEC PO SCH (09:00)
[2017-03-13] MEDS ORDERED: FOLIC ACID 1 MG TAB PO SCH (09:00)
[2017-03-13] MEDS ORDERED: MULTIVITAMINS/MINERALS THERAPEUTIC TAB PO SCH (09:00)
[2017-03-13] MEDS ORDERED: REGADENOSON INJ 0.4 MG/5 ML SYR ONE (11:09)
--- NOTE | 2017-03-13 12:16 | RADRPT ---
EXAM DATE/TIME: 03/13/2017 10:43 [facility] COMPARISON: No previous studies available for comparison. INDICATIONS : Substernal chest pain without radiation. Angina. DOSE: 25.4 mCi Tc99m Myoview at stress. 8.5 mCi Tc99m Myoview at rest. 0.4 mg Lexiscan STRESS SYMPTOMS: Dyspnea. EJECTION FRACTION: 64% MEDICAL HISTORY : Hypertension. SURGICAL HISTORY : Tonsillectomy. ENCOUNTER: Initial ACUITY: 1 day PAIN SCALE: 3/10 LOCATION: Substernal chest TECHNIQUE: The patient underwent pharmacologic stress with infusion of prescribed dose. Continuous ECG tracing was monitored during stress. Gated SPECT imaging was performed after stress and conventional SPECT i maging was performed at rest. The examination was performed on a SPECT/CT scanner, both attenuation and non-corrected datasets were reviewed. FINDINGS: DISTRIBUTION: The maximum perfused segment at stress is in the lateral wall. PERFUSION STUDY: The pattern of perfusion at stress is within normal limits. GATED STUDY: There is intact wall motion and thickening without hypokinetic or dyskinetic segments. CONCLUSION: 1. No definite reversible perfusion defects are identified to suggest stress-induced myocardial ische kiersten. 2. Normal ejection fraction and wall motion. RISK CATEGORY: Low (<1% Annual Mortality Rate) Blane Bhat MD on March 13, 2017 at 12:12 Board Certified Radiologist. This report was verified electronically.
[2017-03-13] MEDS ORDERED: CHLO10CA5 PO (13:04)
[2017-03-13] MEDS ORDERED: METO25TA3 PO (13:04)
--- NOTE | 2017-03-13 13:38 | EKG ---
Date Performed: 03/12/2017 Time Performed: 15:49:28 PTAGE: 62 years EKG: NORMAL Sinus rhythm Compared to previous tracing, the sinus tachycardia is resolved. The evidence of right atrial enlarg ement has resolved ABNORMAL RHYTHM ECG NO PREVIOUS TRACING DOCTOR: Jasmin Sol Interpretating Date/Time 03/13/2017 13:37:17
[2017-03-13] MEDS ORDERED: WARFARIN SOD 10 MG TAB PO SCH (16:00)
[2017-03-13] MEDS ORDERED: WARFARIN SOD 7.5 MG TAB PO ONE (16:00)
[2017-03-14] MEDS ORDERED: WARFARIN SOD 10 MG TAB PO SCH (16:00)
== END 2017-03-13 15:40 | disposition home or self-care (01) ==
LOC: NEPC 15:31 → NEDA 18:42 → NEPHCDU 20:15 → NEPFCDU 22:14
PROVIDERS: ADMIT Hospitalist; ATTEND Hospitalist
DX: R07.89 Other chest pain (principal); F10.229 Alcohol dependence with intoxication, unspecified; R79.1 Abnormal coagulation profile; R07.2 Precordial pain; D72.819 Decreased white blood cell count, unspecified; E83.51 Hypocalcemia; R00.0 Tachycardia, unspecified; R94.31 Abnormal electrocardiogram [ECG] [EKG]; I10 Essential (primary) hypertension; I20.9 Angina pectoris, unspecified; F17.210 Nicotine dependence, cigarettes, uncomplicated; Z79.01 Long term (current) use of anticoagulants; Z86.718 Personal history of other venous thrombosis and embolism; Z86.711 Personal history of pulmonary embolism; R25.1 Tremor, unspecified
CPT/HCPCS: 71010; 78452; 80048; 80053; 80061; 80307; 82550; 82552; 82948; 83735; 84484; 85025; 85610; 85730; 93005; 93017; 96360; 99285; A9502; G0378; J1650; J2785; J7030; J7040

== ENCOUNTER 2017-04-05 12:49 | Emergency (ER) | payer OTHER ==
[~2017-04-05] VITALS: Ht 177.8 cm; Wt 65.0 kg
[~2017-04-05 12:49] MED LIST changes: -CLIN1CAP6 PO
[2017-04-05 12:51] VITALS: BP 140/78; PULSE 89; RESP 16; TEMP 98.4; O2SAT 98
--- NOTE | 2017-04-05 13:57 | PD ---
HPI Chief Complaint: Skin Problem Time Seen by Provider: 13:40 Travel History International Travel<30 days: No Contact w/Intl Traveler<30days: No Traveled to known affect area: No History of Present Illness HPI 62-year-old male presents emergency department for evaluation of a painful insect bites on his back 3 days. Patient reports the area has become increasingly more painful and swollen. He reports an unknown insect bit him. He denies fever or chills nausea or vomiting. He reports the pain is localized to the site of insect bite, nonradiating, no aggravating or alleviating factors , severity 5 out of 10. PFSH Past Medical History Hx Anticoagulant Therapy: Yes (COUMADIN) Asthma: No Autoimmune Disease: No Blood Disorders: No Heart Rhythm Problems: No Cancer: No Cardiovascular Problems: Yes (PULMONARY EMBOLISM) High Cholesterol: No Chemotherapy: No Chest Pain: No Congestive Heart Failure: No COPD: No Diminished Hearing: No Deep Vein Thrombosis: Yes (LLE 2012) Endocrine: No Genitourinary: No Immune Disorder: No Musculoskeletal: No Neurologic: No Psychiatric: No Reproductive: No Respiratory: Yes (PE) Pneumonia: Yes (SECONDARY TO PE) Radiation Therapy: No Sleep Apnea: No Tetanus Vaccination: > 5 Years Influenza Vaccination: No Past Surgical History Abdominal Surgery: No AICD: No Arteriovenous Shunt: No Cardiac Surgery: No Ear Surgery: No Endocrine Surgery: No Eye Surgery: No Genitourinary Surgery: No Gynecologic Surgery: No Insulin Pump: No Joint Replacement: No Oral Surgery: No Pacemaker: No Thoracic Surgery: No Tonsillectomy: Yes Other Surgery: Yes (RIGHT SIDE FACIAL RECONSTRUCTION) Social History Alcohol Use: Yes (4 PACK OF BEER DAILY) Tobacco Use: Yes (1 PPD) Substance Use: No Allergies-Medications (Allergen,Severity, Reaction): Coded Allergies: Penicillin (Verified Allergy, Severe, ARM SWELLING AT INJECTION SITE, 04/05) Reported Meds & Prescriptions Reported Meds & Active Scripts Active Coumadin (Warfarin) 5 Mg Tab 10 Mg PO DAILY Review of Systems Except as stated in HPI: all other systems reviewed are Neg General / Constitutional: No: Fever Eyes: No: Visual changes HENT: No: Headaches Cardiovascular: No: Chest Pain or Discomfort Respiratory: No: Shortness of Breath Gastrointestinal: No: Abdominal Pain Genitourinary: No: Dysuria Physical Exam Narrative GENERAL: [-] SKIN: Focused skin assessment warm/dry. Right Posterior back: 3 cm centimeter area of induration and surrounding erythema with tiny central pustule. No fluctuance. HEAD: Atraumatic. Normocephalic. EYES: Pupils equal and round. No scleral icterus. No injection or drainage. ENT: No nasal bleeding or discharge. Mucous membranes pink and moist. NECK: Trachea midline. No JVD. CARDIOVASCULAR: Regular rate and rhythm. No murmur appreciated. RESPIRATORY: No accessory muscle use. Clear to auscultation. Breath sounds equal bilaterally. GASTROINTESTINAL: Abdomen soft, non-tender, nondistended. Hepatic and splenic margins not palpable. MUSCULOSKELETAL: No obvious deformities. No clubbing. No cyanosis. No edema. NEUROLOGICAL: Awake and alert. No obvious cranial nerve deficits. Motor grossly within normal limits. Normal speech. PSYCHIATRIC: Appropriate mood and affect; insight and judgment normal. Data Data Last Documented VS Vital Signs Date Time Temp Pulse Resp B/P Pulse Ox O2 Delivery O2 Flow Rate FiO2 04/05/17 12:51 98.4 89 16 140/78 98 MDM Medical Decision Making Medical Screen Exam Complete: Yes Emergency Medical Condition: Yes Differential Diagnosis Abscess, cellulitis, infected insect bite Narrative Course 62-year-old male with three-day history of painful insect bite to the right posterior back. Physical exam is consistent with early abscess and surrounding cellulitis. There is no induration to queta open. Patient we put on antibiotics and instructed to follow-up in 2 days for recheck. Patient verbalizes understanding and agrees to plan. Diagnosis Primary Impression: Abscess Referrals: Primary Care Physician Additional Instructions: Take the antibiotics as prescribed. Apply warm compresses to the area several times per day. Follow-up with her primary care doctor in 2 days. Return to emergency department if he developed new or worsening symptoms. Scripts Clindamycin 300 Mg [id number] Mg PO Q6H #40 CAP Prov:Camille White 04/05/17 Disposition: 01 DISCHARGE HOME Condition: Stable Camille White Apr 05, 2017 13:57
[2017-04-05] MEDS ORDERED: CLIN1CAP6 PO (14:04)
[2017-04-12] MEDS ORDERED: COUM5TAB PO (09:57)
== END 2017-04-05 14:15 | disposition home or self-care (01) ==
LOC: NEPK 12:49
DX: L02.212 Cutaneous abscess of back [any part, except buttock and flank] (principal); F17.210 Nicotine dependence, cigarettes, uncomplicated; Z86.718 Personal history of other venous thrombosis and embolism; Z86.711 Personal history of pulmonary embolism; Z79.01 Long term (current) use of anticoagulants; Z88.0 Allergy status to penicillin
CPT/HCPCS: 99283

== ENCOUNTER → 2017-04-05 | Outpatient (CLI) | payer OTHER ==
[~2017-04-05] MED LIST changes: -CEFD300C PO; +CHLO10CA5 PO; +CLIN1CAP6 PO; +METO25TA3 PO; -ZITH250T PO
[2017-04-05 13:10] LABS: APTT (PATIENT) 31.6 SEC (24.3-30.1); INTERNATIONAL NORMALIZED RATIO 1.4 RATIO; PROTHROMBIN TIME - PATIENT 15.7 SEC (9.8-11.6)
== END ==
LOC: CLAB 12:27
PROVIDERS: ATTEND Physician Assistant Medical
DX: I82.401 Acute embolism and thrombosis of unspecified deep veins of right lower extremity (principal)
CPT/HCPCS: 36415; 85610; 85730

== ENCOUNTER → 2017-04-07 | Outpatient (CLI) | payer OTHER ==
[~2017-04-07] MED LIST changes: +CLIN1CAP6 PO
[2017-04-07 11:34] LABS: APTT (PATIENT) 35.5 SEC (24.3-30.1); INTERNATIONAL NORMALIZED RATIO 1.6 RATIO; PROTHROMBIN TIME - PATIENT 17.7 SEC (9.8-11.6)
== END ==
LOC: CLAB 10:31
PROVIDERS: ATTEND Family Medicine
DX: I82.401 Acute embolism and thrombosis of unspecified deep veins of right lower extremity (principal)
CPT/HCPCS: 36415; 85610; 85730

== ENCOUNTER → 2017-04-12 | Outpatient (CLI) | payer OTHER ==
[~2017-04-12] MED LIST changes: -CHLO10CA5 PO; -METO25TA3 PO
[2017-04-12 09:44] LABS: APTT (PATIENT) 29.3 SEC (24.3-30.1); INTERNATIONAL NORMALIZED RATIO 1.3 RATIO; PROTHROMBIN TIME - PATIENT 15.1 SEC (9.8-11.6)
== END ==
LOC: CLAB 09:06
PROVIDERS: ATTEND Family Medicine
DX: I82.401 Acute embolism and thrombosis of unspecified deep veins of right lower extremity (principal)
CPT/HCPCS: 36415; 85610; 85730

== ENCOUNTER 2018-03-03 10:28 | Emergency (ER) | payer SELFPAY ==
[~2018-03-03] VITALS: Ht 177.8 cm; Wt 63.5 kg
[~2018-03-03 10:28] MED LIST changes: -CLIN1CAP6 PO; +CLIN300C5 PO
[2018-03-03 10:43] VITALS: BP 112/61; PULSE 108; RESP 16; TEMP 98.3; O2SAT 96
--- NOTE | 2018-03-03 11:18 | RADRPT ---
EXAM DATE: 03/03/2018 11:14 AM EDT AGE/SEX: 63 years / Male INDICATIONS: Left patella pain, no known injury. CLINICAL DATA: This is the patient's initial encounter. Patient reports that signs and symptoms have been present for 1 day and indicates a pain score of 7/10. MEDICAL/SURGICAL HISTORY: None. None. COMPARISON: No prior exams available for comparison. FINDINGS: Mild degenerative changes evident. There is no joint effusion. Alignment is anatomic. There are. Frac tures are not appreciated. CONCLUSION: Electronically signed by: Addison Russo MD 03/03/2018 11:16 AM EDT
--- NOTE | 2018-03-03 12:13 | PD ---
HPI Chief Complaint: Injury Time Seen by Provider: 11:54 Travel History International Travel<30 days: No Contact w/Intl Traveler<30days: No Traveled to known affect area: No History of Present Illness HPI Patient is a 63 year old homeless male presents to the ER for evaluation of "i think i cracked my knee" He states that he bumped it against unknown object yesterday. he has been able to walk on it since. Smells of alcohol. Admits to drinking today. Denies any head/neck/back/chest/abdomen pain or injury. States pain is severe, over patella, context and duration as above. PFSH Past Medical History Hx Anticoagulant Therapy: Yes (COUMADIN) Asthma: No Autoimmune Disease: No Blood Disorders: No Heart Rhythm Problems: No Cancer: No Cardiovascular Problems: Yes (PULMONARY EMBOLISM) High Cholesterol: No Chemotherapy: No Chest Pain: No Congestive Heart Failure: No COPD: No Diminished Hearing: No Deep Vein Thrombosis: Yes (LLE 2012) Endocrine: No Genitourinary: No Immune Disorder: No Musculoskeletal: No Neurologic: No Psychiatric: No Reproductive: No Respiratory: Yes (PE) Pneumonia: Yes (SECONDARY TO PE) Radiation Therapy: No Sleep Apnea: No Influenza Vaccination: No Past Surgical History Abdominal Surgery: No AICD: No Arteriovenous Shunt: No Cardiac Surgery: No Ear Surgery: No Endocrine Surgery: No Eye Surgery: No Genitourinary Surgery: No Gynecologic Surgery: No Insulin Pump: No Joint Replacement: No Oral Surgery: No Pacemaker: No Thoracic Surgery: No Tonsillectomy: Yes Other Surgery: Yes (RIGHT SIDE FACIAL RECONSTRUCTION) Social History Alcohol Use: Yes (4 PACK OF BEER DAILY) Tobacco Use: Yes (1 PPD) Substance Use: No Allergies-Medications (Allergen,Severity, Reaction): Coded Allergies: penicillin G (Unverified Allergy, Severe, ARM SWELLING AT INJECTION SITE, 03/03/18) Reported Meds & Prescriptions Reported Meds & Active Scripts Active Review of Systems Except as stated in HPI: all other systems reviewed are Neg Physical Exam Narrative GENERAL: WD/WN disheveled, smells of alcohol. SKIN: Warm and dry. HEAD: Normocephalic. EYES: No scleral icterus. No injection or drainage. NECK: Supple, trachea midline. No JVD or lymphadenopathy. CARDIOVASCULAR: Regular rate and rhythm without murmurs, gallops, or rubs. RESPIRATORY: Breath sounds equal bilaterally. No accessory muscle use. GASTROINTESTINAL: Abdomen soft, non-tender, nondistended. MUSCULOSKELETAL: No cyanosis, or edema. There is no tenderness, no effusion, no laxity of the left knee. Able to ROM past 90 degrees. right knee atraumatic. No tenderness at left hip nor ankle. BACK: Nontender without obvious deformity. No CVA tenderness. Data Data Last Documented VS Vital Signs Date Time Temp Pulse Resp B/P (MAP) Pulse Ox O2 Delivery O2 Flow Rate FiO2 03/03/18 17:18 03/03/18 10:43 98.3 108 16 96 Orders Orders Knee, Complete (4vws) (03/03/18 ) [facility] Medical Decision Making Medical Screen Exam Complete: Yes Emergency Medical Condition: Yes Differential Diagnosis Knee pain, knee strain, knee fracture, Alcohol intoxication. Narrative Course Patient roomed in the ER. Belligerent on arrival he ultimately did fall asleep in the room. Will be observed until clinically sober for discharge. Head and neck appear atraumatic and are atraumatic by patient provided history. Knee xray negative, exam is reassuring. Once sober will be appropriate for discharge. Discussed with oncoming provider at 1700 shift change. Diagnosis Primary Impression: Alcohol intoxication Additional Impression: Knee pain Víctor Ward MD Mar 03, 2018 12:13
[2018-03-03 19:21] VITALS: BP 110/66; PULSE 83; RESP 18; O2SAT 94
--- NOTE | 2018-03-04 04:24 | PD ---
Physical Exam Date Seen by Provider: Mar 04, 2018 Time Seen by Provider: 04:23 Narrative GENERAL: This is a well-nourished, well-developed patient, in no apparent distress. SKIN: No rashes, ecchymoses or lesions. Warm and dry. HEAD: Atraumatic. Normocephalic. EYES: PERRL, EOMI, no discharge or injection. No scleral icterus. EARS: Clear NOSE: Nasal turbinates appear normal. THROAT: Mucosa pink and moist. Airway patent. NECK: Trachea midline. supple, moves head freely. LUNGS: Clear to auscultation. CV: Regular in rhythm. ABDOMEN: Soft nontender. EXT: No clubbing cyanosis or edema. Data Data Last Documented VS Vital Signs Date Time Temp Pulse Resp B/P (MAP) Pulse Ox O2 Delivery O2 Flow Rate FiO2 03/03/18 19:21 83 18 110/66 (81) 94 03/03/18 10:43 98.3 Orders Orders Knee, Complete (4vws) (03/03/18 ) [facility] Medical Record Reviewed: Yes Supervised Visit with SHANNON: Yes Interpretation(s) Last 24 hours Impressions Knee X-Ray 03/03/18 0000 Signed Impressions: CONCLUSION: Differential Diagnosis . Narrative Course The patient is now appearing sober. Is up and ambulatory. He has been to the bathroom several times. He is not complaining of any knee pain at this time. The patient is considered medically stable for discharge. This is alcohol intoxication, knee pain Diagnosis Primary Impression: Alcohol intoxication Additional Impression: Knee pain Patient Instructions: General Instructions Additional Instruction: Rest. Increase fluids. Avoid alcohol. Avoid illegal substances. Follow-up with [facility] Ornelas for detox. Do not operate a car or any heavy machinery under the influence of alcohol or drugs. Follow-up with a medical doctor this week. Return to the ER for emergencies Med/Other Pt SpecificInfo: No Meds Exist/No RX given Disposition: 01 DISCHARGE HOME Condition: Stable Aditya Schmitt Mar 04, 2018 04:24
== END 2018-03-04 06:26 | disposition home or self-care (01) ==
LOC: NEPD 10:28 → NEDAMB 03-04 06:26
DX: F10.129 Alcohol abuse with intoxication, unspecified (principal); M25.562 Pain in left knee; F17.200 Nicotine dependence, unspecified, uncomplicated
CPT/HCPCS: 73564; 99283